=== PATIENT | female | born 1945 | race Two or more races ===

== ENCOUNTER 2021-11-12 03:58 | Inpatient (IN) | payer MEDICARE, OTHER ==
[~2021-11-12] VITALS: Ht 152.4 cm; Wt 69.5 kg
[2021-11-12] MEDS ORDERED: KETOROLAC TROMETH 30 MG/ML 1ML VIAL IV ONE (05:45)
[2021-11-12] MEDS ORDERED: SODIUM CHLORIDE 0.9% 1,000 ML IV ONE (05:45)
[2021-11-12 06:10] LABS: Urine Bacteria FEW /hpf (None Seen); Urine Blood Negative /uL (Negative); Urine Specific Gravity 1.018 (1.001-1.035); Urine WBC 8 /hpf (0 - 5)
[2021-11-12 06:44] LABS: Basophils # (auto) 0.1 10 ^3/uL (0-0.2); Basophils % (auto) 0.7 % (0.0-2.0); Eosinophils # (auto) 0 10 ^3/uL (0-0.8); Eosinophils % (auto) 0.1 % (0.0-7.0); Hematocrit 38.6 % (36.0-46.0); Lymphocytes % (auto) 11.7 % (10.0-50.0); Mean Corpuscular Hemoglobin 29.4 pg (28.0-32.0); Mean Corpuscular Hgb Conc. 33.8 g/dL (32.0-36.0); Mean Corpuscular Volume 87.1 fL (80.0-100.0); Monocytes # (auto) 0.4 10 ^3/uL (0-1.3); Monocytes % (auto) 4.6 % (0.0-12.0); Neutrophils # (auto) 7.2 10 ^3/uL (1.6-8.6); Neutrophils % (auto) 82.9 % (37.0-80.0); Red Blood Cells 4.44 10^6/uL (4.0-5.20); Red Cell Distribution Width 12.9 % (11.8-14.3); White Blood Cell 8.7 10^3/uL (4.4-10.8)
[2021-11-12] MEDS ORDERED: cefTRIAXone 1GM/50ML D5W 50 ML IV ONE (07:00)
[2021-11-12 07:01] LABS: Albumin 3.3 g/dL (3.4-5.0); Calcium 8.6 mg/dL (8.5-10.1); Potassium 3.8 mmol/L (3.5-5.1)
[2021-11-12] MEDS ORDERED: NITR-87 PO (07:01)
[2021-11-12 07:04] LABS: Bilirubin, Total 0.2 mg/dL (0.2-1.0); Total Protein 6.5 g/dL (6.4-8.2)
[2021-11-12] MEDS ORDERED: HYDROmorphone HCL 2 MG/ML VL/or syr IV ONE ×2 (09:00→14:15)
[2021-11-12] MEDS ORDERED: AZITHROMYCIN 500MG/ 250ML 250 ML IV ONE (10:00)
[2021-11-12] MEDS ORDERED: MORPHINE SULFATE INJ 2 MG/ml SYRG IV PRN ×2 (14:30)
[2021-11-12] MEDS ORDERED: NITROGLYCERIN 0.4 MG SL TAB SL PRN (14:30)
[2021-11-12] MEDS ORDERED: hydrALAZINE HCL 20 MG/ML VL IV PRN (14:30)
[2021-11-12] MEDS: HYDROmorphone HCL 2 MG/ML VL/or syr IV PRN ×2 (17:09→22:08)
[2021-11-12 18:00] VITALS: BP 133/57
[2021-11-12] MEDS ORDERED: DexAMETHasone INJECTION 10 MG in D5W 5% 50 ML IV ONE (18:00)
[2021-11-12] MEDS ORDERED: DOCUSATE SOD 100 MG CAP PO PRN (18:15)
[2021-11-12] MEDS ORDERED: ARTIFICIAL TEARS 15ml EACHEYE PRN (18:15)
[2021-11-12] MEDS ORDERED: SODIUM CHLORIDE 0.9% 1,000 ML IV SCH (18:15)
[2021-11-12] MEDS ORDERED: LORazepam 0.5 MG TAB PO PRN (18:15)
[2021-11-12 19:51] LABS: INR 0.99 (0.9-1.15); Partial Thromboplastin Time 25.5 sec (23.6-33.0)
[2021-11-12] MEDS: HYDROcodone-ACET 5/325MG TAB PO PRN (20:40)
[2021-11-12] MEDS: ATORVASTATIN 20 MG TAB PO SCH (21:21)
[2021-11-12 22:00] VITALS: BP 156/68
[2021-11-13] MEDS: HYDROmorphone HCL 2 MG/ML VL/or syr IV PRN ×4 (02:09→16:25)
[2021-11-13 05:00] VITALS: BP 141/64
[2021-11-13 05:39] LABS: Basophils # (auto) 0 10 ^3/uL (0-0.2); Basophils % (auto) 0.3 % (0.0-2.0); Eosinophils # (auto) 0 10 ^3/uL (0-0.8); Hematocrit 38.2 % (36.0-46.0); Hemoglobin 12.8 g/dL (12.2-16.2); Lymphocytes # (auto) 0.7 10 ^3/uL (0.4-5.4); Lymphocytes % (auto) 10.1 % (10.0-50.0); Mean Corpuscular Hgb Conc. 33.6 g/dL (32.0-36.0); Mean Corpuscular Volume 86.4 fL (80.0-100.0); Monocytes # (auto) 0 10 ^3/uL (0-1.3); Monocytes % (auto) 0.4 % (0.0-12.0); Neutrophils % (auto) 89.2 % (37.0-80.0); Nucleated Red Blood Cells % 0.1 %; Red Blood Cells 4.42 10^6/uL (4.0-5.20); Red Cell Distribution Width 12.9 % (11.8-14.3); White Blood Cell 6.8 10^3/uL (4.4-10.8)
[2021-11-13 05:58] LABS: INR 0.98 (0.9-1.15); Partial Thromboplastin Time 26.2 sec (23.6-33.0)
[2021-11-13 06:02] LABS: Calcium 8.8 mg/dL (8.5-10.1); Potassium 4.7 mmol/L (3.5-5.1); Uric Acid 5.4 mg/dL (2.6-6.0)
[2021-11-13 06:13] LABS: Albumin 3.2 g/dL (3.4-5.0); BUN/Creatinine Ratio 18.5; Bilirubin, Total 0.4 mg/dL (0.2-1.0); CRP High Sensitivity 1.62 mg/dL (< 0.3); Phosphorus 2.6 mg/dL (2.5-4.90); Total Protein 6.4 g/dL (6.4-8.2)
[2021-11-13] MEDS ORDERED: LORazepam 2MG/ML-1ML VIAL IV ONE ×4 (07:00→11:45)
[2021-11-13 08:00] VITALS: BP 155/72
[2021-11-13] MEDS ORDERED: PANTOPRAZOLE 40 MG/10 ML VIAL INJ IV SCH (10:00)
[2021-11-13] MEDS ORDERED: ENOXAPARIN SOD 40 MG/0.4 ML SYRINGE SC SCH (10:00)
[2021-11-13] MEDS ORDERED: AZITHROMYCIN 500MG/ 250ML 250 ML IV SCH (10:00)
[2021-11-13] MEDS ORDERED: POTASSIUM CHL 10 Meq TABLET PO ONE (10:15)
[2021-11-13] MEDS ORDERED: KETOROLAC TROMETH 30 MG/ML 1ML VIAL IV ONE (10:15)
[2021-11-13] MEDS ORDERED: FUROSEMIDE 20 MG/2 ML VIAL IV ONE (10:15)
[2021-11-13] MEDS: cefTRIAXone 1GM/50ML D5W 50 ML IV SCH (10:18)
[2021-11-13] MEDS: ONDANSETRON HCL 4 MG/2 ML VIAL IV PRN (11:41)
[2021-11-13 13:04] VITALS: BP 135/68
[2021-11-13 17:00] VITALS: BP 143/67
[2021-11-13 19:45] LABS: Urine Bacteria NONE SEEN /hpf (None Seen); Urine Blood Negative /uL (Negative); Urine Specific Gravity 1.005 (1.001-1.035); Urine WBC <1 /hpf (0 - 5)
[2021-11-13 20:14] LABS: Amphetamine Screen, Urine NEGATIVE (NEGATIVE); Barbiturate Scree,Urine NEGATIVE (NEGATIVE); Benzodiazephine Screen, Urine NEGATIVE (NEGATIVE); Cannabinoid Screen, Urine NEGATIVE (NEGATIVE); Cocaine Screen, Urine NEGATIVE (NEGATIVE); Opiate Scree,Urine POSITIVE (NEGATIVE); Phencyclidine Screen, Urine NEGATIVE (NEGATIVE)
[2021-11-13] MEDS: ATORVASTATIN 20 MG TAB PO SCH (21:28)
[2021-11-13] MEDS: HYDROcodone-ACET 5/325MG TAB PO PRN (21:31)
[2021-11-13 22:00] VITALS: BP 138/68
[2021-11-14] MEDS: HYDROcodone-ACET 5/325MG TAB PO PRN (03:04)
[2021-11-14] MEDS: HYDROmorphone HCL 2 MG/ML VL/or syr IV PRN (04:48)
[2021-11-14 05:00] VITALS: BP 157/60
[2021-11-14 05:48] LABS: Potassium 4.4 mmol/L (3.5-5.1)
[2021-11-14 05:58] LABS: BUN/Creatinine Ratio 21.9; Calcium 9.3 mg/dL (8.5-10.1)
[2021-11-14 09:00] VITALS: BP 106/39
[2021-11-14] MEDS: cefTRIAXone 1GM/50ML D5W 50 ML IV SCH (09:27)
[2021-11-14] MEDS ORDERED: AZITHROMYCIN 250 MG TAB PO SCH (10:00)
[2021-11-14] MEDS ORDERED: PANTOPRAZOLE 40 MG TAB PO SCH (10:00)
[2021-11-14] MEDS ORDERED: KETOROLAC TROMETH 30 MG/ML 1ML VIAL IV ONE (10:15)
[2021-11-14] MEDS ORDERED: DexAMETHasone SOD PHOS 10MG/1ML VIAL INJ IV ONE (10:15)
[2021-11-14] MEDS ORDERED: DEX4T PO (10:22)
[2021-11-14] MEDS ORDERED: OMEP-434 PO (10:22)
[2021-11-14] MEDS ORDERED: NAP500T PO (10:22)
[2021-11-14 12:24] VITALS: BP 155/72
[2021-11-14 13:00] VITALS: BP 110/61
[2021-11-14] MEDS: ONDANSETRON HCL 4 MG/2 ML VIAL IV PRN (13:21)
== END 2021-11-14 14:43 | disposition home or self-care (01) | DRG 551 ==
LOC: ER 03:58 → TELE 14:29 → TELE-CENTR 17:46 → CENTRAL 11-13 13:21
PROVIDERS: ADMIT Hospitalist; ATTEND Internal Medicine
DX: M48.061 Spinal stenosis, lumbar region without neurogenic claudication (principal); I50.31 Acute diastolic (congestive) heart failure; M35.1 Other overlap syndromes; I13.0 Hypertensive heart and chronic kidney disease with heart failure and stage 1 through stage 4 chronic kidney disease, or unspecified chronic kidney disease; N17.9 Acute kidney failure, unspecified; E03.9 Hypothyroidism, unspecified; E66.9 Obesity, unspecified; E78.5 Hyperlipidemia, unspecified; F41.9 Anxiety disorder, unspecified; G89.29 Other chronic pain; K21.9 Gastro-esophageal reflux disease without esophagitis; K29.70 Gastritis, unspecified, without bleeding; Z20.822 Contact with and (suspected) exposure to COVID-19; M54.16 Radiculopathy, lumbar region; M19.90 Unspecified osteoarthritis, unspecified site; M35.00 Sjogren syndrome, unspecified; M79.7 Fibromyalgia; N18.31 Chronic kidney disease, stage 3a; Z90.710 Acquired absence of both cervix and uterus; Z87.440 Personal history of urinary (tract) infections; Z68.29 Body mass index [BMI] 29.0-29.9, adult
CPT/HCPCS: 36415; 71045; 72148; 74176; 80048; 80053; 80061; 80307; 81001; 82550; 82728; 83036; 83615; 83690; 83735; 83880; 83970; 84100; 84156; 84439; 84443; 84484; 84550; 85025; 85379; 85610; 85652; 85730; 86141; 87040; 87086; 93005; 96365; 96367; 96375; C9113; G0378; J0696; J1100; J1885; J2405; J7060